=== PATIENT | female | born 1985 | race Hispanic/Latino ===

== ENCOUNTER 2017-06-13 08:24 | Emergency (ER) | payer SELFPAY ==
[2017-06-13 08:59] LABS: HEMATOCRIT 39.7 % (37.0-47.0); HEMOGLOBIN 12.8 g/dl (12.0-16.0); IMMATURE GRANULOCYTES 0.5 % (0.0-1.0); MEAN CELL VOLUME 84.8 fL CALC (80.0-100.0); MEAN CORPUSCULAR HGB 27.4 pG CALC (26.0-32.0); MEAN CORPUSCULAR HGB CONC 32.2 g/L CALC (32.0-36.0); NEUT# 5.34 thou/uL (2.00-7.15); RED BLOOD COUNT 4.68 mill/uL (4.20-5.60); RED CELL DISTRI WIDTH 15.3 % (11.5-15.5)
[2017-06-13 09:14] LABS: ALBUMIN 4.5 g/dL (3.2-5.0); ALKALINE PHOSPHATASE 101 u/l (38-126); ANION GAP 15 (6-22 (CALC)); BILIRUBIN, TOTAL 0.6 mg/dL (0.0-1.4); BUN 11 mg/dL (7-17); BUN/CREATININE RATIO 16 (12-20 (CALC)); CALCIUM 9.5 mg/dL (8.4-10.2); CARBON DIOXIDE 23 mmol/l (22-30); CHLORIDE 107 mmol/l (95-108); CREATININE 0.7 mg/dL (0.5-1.0); GFR > 60 ML/MIN (>=60 (CALC)); GFR FOR AFR.AMER. > 60 ML/MIN (>=60 (CALC)); GLUCOSE 98 mg/dL (65-105); POTASSIUM 4.4 mmol/l (3.5-5.1); SGOT/AST 20 u/l (14-36); SGPT/ALT 18 u/l (9-52); SODIUM 140 mmol/l (137-146); TOTAL PROTEIN 7.1 g/dL (6.3-8.2)
[2017-06-13 09:31] LABS: BETA-HCG, QUANT(RESULT NUMBER) 11156 mIU/mL
[2017-06-13 11:20] VITALS: BP 107/63
== END 2017-06-13 11:20 | disposition home or self-care (01) | DRG 782 ==
LOC: ED 08:24
PROVIDERS: Emergency Medicine
DX: O46.91 Antepartum hemorrhage, unspecified, first trimester (principal); Z3A.01 Less than 8 weeks gestation of pregnancy

== ENCOUNTER 2017-06-16 13:52 | Emergency (ER) | payer SELFPAY ==
[2017-06-16 14:45] LABS: IMMATURE GRANULOCYTES 0.4 % (0.0-1.0); MEAN CELL VOLUME 84.4 fL CALC (80.0-100.0); MEAN CORPUSCULAR HGB 28.1 pG CALC (26.0-32.0); MEAN CORPUSCULAR HGB CONC 33.3 g/L CALC (32.0-36.0); NEUT# 5.04 thou/uL (2.00-7.15); RED BLOOD COUNT 4.62 mill/uL (4.20-5.60)
[2017-06-16 15:45] VITALS: BP 121/74
[2017-06-16] MEDS ORDERED: PRE-NATAL PO (15:53)
== END 2017-06-16 15:45 | disposition home or self-care (01) | DRG 778 ==
LOC: ED 13:52
PROVIDERS: Family Medicine
DX: O20.9 Hemorrhage in early pregnancy, unspecified (principal); Z3A.08 8 weeks gestation of pregnancy

== ENCOUNTER 2017-09-05 16:09 | Emergency (ER) | payer SELFPAY ==
[~2017-09-05 16:09] MED LIST: PRE-NATAL PO
[2017-09-05 16:36] LABS: URINE BILIRUBIN - DIPSTICK NEGATIVE (NEGATIVE); URINE BLOOD DIPSTICK TRACE-LYSED (NEGATIVE); URINE COLOR YELLOW; URINE GLUCOSE - DIPSTICK NEGATIVE (NEGATIVE); URINE KETONE NEGATIVE (NEGATIVE); URINE LEUK ESTERASE NEGATIVE (NEGATIVE); URINE NITRITE - DIPSTICK NEGATIVE (Negative); URINE PROTEIN - DIPSTICK NEGATIVE (NEG-TRACE); URINE SPECIFIC GRAVITY <=1.005; URINE UROBILINOGEN - DIPSTICK 0.2 E.U./dL (0.2)
[2017-09-05 16:40] LABS: URINE CLARITY CLEAR
[2017-09-05 17:54] VITALS: BP 109/60
== END 2017-09-05 17:54 | disposition home or self-care (01) | DRG 778 ==
LOC: ED 16:09
PROVIDERS: Emergency Medicine
DX: O20.0 Threatened abortion (principal); Z3A.17 17 weeks gestation of pregnancy

== ENCOUNTER 2019-09-28 | Emergency (ER) | payer SELFPAY ==
[2019-09-28] MEDS ORDERED: AMOXICILLIN500 M2 PO (10:13)
== END 2019-09-28 10:40 | disposition home or self-care (01) | DRG 153 ==
DX: J02.0 Streptococcal pharyngitis (principal); Z20.828 Contact with and (suspected) exposure to other viral communicable diseases